=== PATIENT | female | born 1995 | race African-American/Black ===

== ENCOUNTER 2019-03-26 17:58 | Emergency (ER) | payer OTHER ==
[~2019-03-26] VITALS: Ht 162.6 cm; Wt 98.9 kg
[2019-03-26 18:26] LABS: BILIRUBIN,URINE NEGATIVE (NEG); CLARITY,URINE CLOUDY; COLOR,URINE YELLOW; NITRITE,URINE NEGATIVE (NEG); PH,URINE 6.5; PROTEIN,URINE NEGATIVE (NEG-TRACE)
[2019-03-26] MEDS ORDERED: IV NORMAL SALINE 1000ML BAG 1,000 ML IV ONE (18:30)
[2019-03-26] MEDS ORDERED: ACETAMINOPHEN 500 MG TABLET PO ONE (18:30)
[2019-03-26 18:50] LABS: BACTERIA,URINE FEW /HPF (0-FEW); RBC,URINE 0 /HPF (0-2); SQUAMOUS EPITHELIAL CELL,UR OCC /LPF; WBC,URINE RARE /HPF (0-4)
--- NOTE | 2019-03-26 18:52 | PHYS DOC ---
Past Medical History Past Medical History: No Pertinent History Past Surgical History: No Surgical History Alcohol Use: None Drug Use: None Adult General Chief Complaint Chief Complaint: ABDOMINAL PAIN IN HPI HPI Patient is a 23 year old at 19.4 weeks gestational age by 1st trimester ultrasound who presents with low back pain and diarrhea. Her first was a term spontaneous vaginal delivery without complications. She states that she has experienced diarrhea for about the past week and low back pain for the past 2 days. She is concerned because these symptoms are similar to when she went into labor during her first . Patient states that the low back pain is fairly constant and rated at 7/10. She is also complaining of vaginal pain. 2 months ago, she was treated for chlamydia and feels that her vaginal pain is similar to when she was first diagnosed with her previous STI. She also notes dysuria. Patient is still feeling good movement, has had no gush of fluid and has had no vaginal bleeding. She states that she has been drinking a good amount of water. She sees Dr. Les Masterson and has an appointment with him tomorrow at 1500. Denies new headaches, RUQ pain, increased swelling, blurred vision or diplopia. Review of Systems Review of Systems Constitutional: Denies fever or chills [] Eyes: Denies change in visual acuity, blurred vision or diplopia[] HENT: Denies nasal congestion or sore throat [] Respiratory: Denies cough or shortness of breath [] Cardiovascular: Eyes chest pain, palpitations, or dizziness[] GI: Reports diarrhea. Denies abdominal pain, nausea, vomiting. [] : Reports dysuria. Denies hematuria [] Musculoskeletal: Reports constant low back pain without radiation.[] Integument: Denies rash or skin lesions [] Neurologic: Denies headache, focal weakness or sensory changes [] Complete review of systems found to be within normal limits, except as documented in this note. Current Medications Current Medications Current Medications Medications (Trade) Dose Ordered Sig/Kylee Start Time Stop Time Status Last Admin Dose Admin Acetaminophen (Tylenol) 500 mg 1X ONCE 03/26/19 18:30 03/26/19 18:31 DC 03/26/19 19:06 500 MG Sodium Chloride 1,000 ml @ 1,000 mls/hr 1X ONCE 03/26/19 18:30 03/26/19 19:29 DC 03/26/19 19:05 1,000 MLS/HR Allergies Allergies Allergies Coded Allergies Type Severity Reaction Last Updated Verified No Known Drug Allergies 10/22/14 No Physical Exam Physical Exam Constitutional: female in no acute distress, non-toxic appearance. [] HENT: Normocephalic, atraumatic, oropharynx moist.. [] Eyes: EOMI, conjunctiva normal, no discharge. [] Cardiovascular:Heart rate regular rhythm, no murmur [] Lungs & Thorax: Bilateral breath sounds clear to auscultation [] Abdomen: Soft and nontender. Gravid uterus palpated at the umbilicus.[] Skin: Warm, dry, no erythema, no rash. [] Back: No tenderness to palpation. [] Extremities: Trace edema bilateral lower extremities. [] Neurologic: Alert and oriented, normal motor function, normal sensory function, no focal deficits noted. [] Psychologic: Affect normal, judgement normal, mood normal. Pelvic Exam: External genitalia normal. Vaginal mucosa without erythema. No pooling of fluid in the posterior vaginal vault. No bleeding noted. Cervix erythematous with yellow discharge and closed os. No cervical motion tenderness. Mild left adnexal tenderness. No adnexal masses noted. [] Current Patient Data Vital Signs Vital Signs Date Time Temp Pulse Resp B/P (MAP) Pulse Ox O2 Delivery O2 Flow Rate FiO2 03/26/19 18:00 98.4 105 14 143/69 (93) 100 Room Air 98.4 Lab Values Laboratory Tests Test 03/26/19 18:15 03/26/19 19:00 Urine Collection Type Void Urine Color Yellow Urine Clarity Cloudy Urine pH 6.5 Urine Specific [place] 1.025 Urine Protein Negative mg/dL (NEG-TRACE) Urine Glucose (UA) Negative mg/dL (NEG) Urine Ketones (Stick) Negative mg/dL (NEG) Urine Blood Negative (NEG) Urine Nitrite Negative (NEG) Urine Bilirubin Negative (NEG) Urine Urobilinogen Dipstick 1.0 mg/dL (0.2 mg/dL) Urine Leukocyte Esterase Negative (NEG) Urine RBC 0 /HPF (0-2) Urine WBC Rare /HPF (0-4) Urine Squamous Epithelial Cells Occ /LPF Urine Bacteria Few /HPF (0-FEW) Urine Mucus Slight /LPF White Blood Count 10.7 x10^3/uL (4.0-11.0) Red Blood Count 4.28 x10^6/uL (3.50-5.40) Hemoglobin 11.2 g/dL (12.0-15.5) L Hematocrit 34.6 % (36.0-47.0) L Mean Corpuscular Volume 81 fL (79-100) Mean Corpuscular Hemoglobin 26 pg (25-35) Mean Corpuscular Hemoglobin Concent 32 g/dL (31-37) Red Cell Distribution Width 14.5 % (11.5-14.5) Platelet Count 211 x10^3/uL (140-400) Neutrophils (%) (Auto) 72 % (31-73) Lymphocytes (%) (Auto) 19 % (24-48) L Monocytes (%) (Auto) 7 % (0-9) Eosinophils (%) (Auto) 2 % (0-3) Basophils (%) (Auto) 0 % (0-3) Neutrophils # (Auto) 7.7 x10^3uL (1.8-7.7) Lymphocytes # (Auto) 2.0 x10^3/uL (1.0-4.8) Monocytes # (Auto) 0.8 x10^3/uL (0.0-1.1) Eosinophils # (Auto) 0.2 x10^3/uL (0.0-0.7) Basophils # (Auto) 0.0 x10^3/uL (0.0-0.2) Maternal Serum HCG Beta Subunit 95189 mIU/mL (0-5) H Sodium Level 138 mmol/L (136-145) Potassium Level 3.7 mmol/L (3.5-5.1) Chloride Level 104 mmol/L (98-107) Carbon Dioxide Level 22 mmol/L (21-32) Anion Gap 12 (6-14) Blood Urea Nitrogen 7 mg/dL (7-20) Creatinine 0.6 mg/dL (0.6-1.0) Estimated GFR (Cockcroft-Gault) 151.3 BUN/Creatinine Ratio 12 (6-20) Glucose Level 81 mg/dL (70-99) Calcium Level 8.8 mg/dL (8.5-10.1) Magnesium Level 1.9 mg/dL (1.8-2.4) Total Bilirubin 0.3 mg/dL (0.2-1.0) Aspartate Amino Transferase (AST) 16 U/L (15-37) Alanine Aminotransferase (ALT) 16 U/L (14-59) Alkaline Phosphatase 63 U/L (46-116) Total Protein 7.2 g/dL (6.4-8.2) Albumin 3.1 g/dL (3.4-5.0) L Albumin/Globulin Ratio 0.8 (1.0-1.7) L Laboratory Tests 03/26/19 19:00 Laboratory Tests 03/26/19 19:00 Microbiology 03/26/19 Wet Prep - Final, Complete EKG EKG [] Radiology/Procedures Radiology/Procedures PROCEDURE: OB LIMITED Limited obstetrical ultrasound 03/26/2019. Reason for exam: Back pain and vaginal pain. FINDINGS: A living intrauterine fetus is demonstrated, with heart rate of 127 bpm. The placenta is seen anteriorly and does not reach the cervix. Amniotic fluid volume appears appropriate. Although a full anatomic survey was not undertaken, no gross anomaly was encountered. The following age estimates were obtained: BPD: 19 weeks 3 days. HC: 20 weeks 0 days. AC: 19 weeks 3 days. FL: 20 weeks 2 days. Composite ultrasound estimated is 19 weeks 6 days, giving DWIGHT of 08/14/2019. IMPRESSION: Living intrauterine fetus. No identified cause for pain. Electronically signed by: Christa Hoyt Jr., MD (03/26/2019 7:47 PM) [facility] DICTATED and SIGNED BY: CHRISTA HOYT Jr, MD DATE: 03/26/191946 Course & Med Decision Making Course & Med Decision Making Pertinent Labs and Imaging studies reviewed. (See chart for details) [] Dragon Disclaimer Dragon Disclaimer This electronic medical record was generated, in whole or in part, using a voice recognition dictation system. Departure Departure Impression: Primary Impression: Abdominal pain during Additional Impression: Back pain during Disposition: HOME, SELF-CARE Condition: STABLE Referrals: UNKNOWN PCP NAME (PCP) Patient Instructions: Abdominal Pain During , [id number] Additional Instructions: Use tylenol as needed for pain. ICE back 20 min on then off 20 min as needed for next few days. Problem Qualifiers Primary Impression: Abdominal pain during Trimester: unspecified trimester Qualified Codes: O26.899 - Other specified related conditions, unspecified trimester; R10.9 - Unspecified abdominal pain BRANDON ZAMBRANO DO March 26, 2019 18:52
[2019-03-26 19:07] LABS: BASO % 0 % (0-3); EOS # 0.2 x10^3/uL (0.0-0.7); EOS % 2 % (0-3); HEMATOCRIT 34.6 % (36.0-47.0); HEMOGLOBIN 11.2 g/dL (12.0-15.5); LYMPH % 19 % (24-48); MEAN CORPUSCULAR HEMOGLOBIN 26 pg (25-35); MEAN CORPUSCULAR HGB CONC 32 g/dL (31-37); MEAN CORPUSCULAR VOLUME 81 fL (79-100); MONO # 0.8 x10^3/uL (0.0-1.1); MONO % 7 % (0-9); NEUT # 7.7 x10^3uL (1.8-7.7); NEUT % 72 % (31-73); PLATELET COUNT 211 x10^3/uL (140-400); RED BLOOD COUNT 4.28 x10^6/uL (3.50-5.40); RED CELL DISTRIBUTION WIDTH 14.5 % (11.5-14.5); WHITE BLOOD COUNT 10.7 x10^3/uL (4.0-11.0)
[2019-03-26 19:16] LABS: CALCIUM 8.8 mg/dL (8.5-10.1); CREATININE 0.6 mg/dL (0.6-1.0); GFR 151.3; POTASSIUM 3.7 mmol/L (3.5-5.1)
[2019-03-26 19:20] LABS: ALBUMIN 3.1 g/dL (3.4-5.0); ALBUMIN/GLOBULIN RATIO 0.8 (1.0-1.7); MAGNESIUM 1.9 mg/dL (1.8-2.4); TOTAL BILIRUBIN 0.3 mg/dL (0.2-1.0); TOTAL PROTEIN 7.2 g/dL (6.4-8.2)
--- NOTE | 2019-03-26 19:49 | RAD ---
Limited obstetrical ultrasound 03/26/2019. Reason for exam: Back pain and vaginal pain. FINDINGS: A living intrauterine fetus is demonstrated, with heart rate of 127 bpm. The placenta is seen anteriorly and does not reach the cervix. Amniotic fluid volume appears appropriate. Although a full anatomic survey was not undertaken, no gross anomaly was encountered. The following age estimates were obtained: BPD: 19 weeks 3 days. HC: 20 weeks 0 days. AC: 19 weeks 3 days. FL: 20 weeks 2 days. Composite ultrasound estimated is 19 weeks 6 days, giving DWIGHT of 08/14/2019. IMPRESSION: Living intrauterine fetus. No identified cause for pain. Electronically signed by: Dennis Polo Jr., MD (03/26/2019 7:47 PM) [facility]
[2019-03-26 20:45] VITALS: BP 103/58
[2019-03-28 14:14] LABS: GC PROBE Negative (Negative)
== END 2019-03-26 21:11 | disposition home or self-care (01) ==
LOC: ER 17:58
DX: O26.892 Other specified pregnancy related conditions, second trimester (principal); M54.5 Low back pain; R10.33 Periumbilical pain; R10.11 Right upper quadrant pain; R19.7 Diarrhea, unspecified; R10.2 Pelvic and perineal pain; Z3A.19 19 weeks gestation of pregnancy
CPT/HCPCS: 36415; 76815; 80053; 81001; 83735; 84702; 85025; 86901; 87491; 87591; 96360; 99285; J7030; Q0111

== ENCOUNTER 2019-08-06 16:12 | Observation (INO) | payer MEDICAID ==
[~2019-08-06] VITALS: Ht 160 cm; Wt 104.3 kg
[2019-08-06] MEDS ORDERED: IV RINGERS,LACTATED 1000ML 1,000 ML IV SCH (17:20)
[2019-08-06 18:28] LABS: BILIRUBIN,URINE NEGATIVE (NEG); CLARITY,URINE CLEAR; COLOR,URINE YELLOW; NITRITE,URINE NEGATIVE (NEG); PROTEIN,URINE NEGATIVE (NEG-TRACE); UROBILINOGEN,URINE 0.2 mg/dL (0.2 mg/dL)
[2019-08-06 18:35] LABS: BACTERIA,URINE 0 /HPF (0-FEW); RBC,URINE 0 /HPF (0-2)
[2019-08-06 18:52] LABS: BASO % 0 % (0-3); EOS # 0.1 x10^3/uL (0.0-0.7); EOS % 1 % (0-3); HEMATOCRIT 34.9 % (36.0-47.0); HEMOGLOBIN 11.4 g/dL (12.0-15.5); LYMPH # 1.9 x10^3/uL (1.0-4.8); LYMPH % 19 % (24-48); MEAN CORPUSCULAR HEMOGLOBIN 25 pg (25-35); MEAN CORPUSCULAR HGB CONC 33 g/dL (31-37); MEAN CORPUSCULAR VOLUME 77 fL (79-100); MONO # 0.8 x10^3/uL (0.0-1.1); MONO % 8 % (0-9); NEUT # 7.2 x10^3/uL (1.8-7.7); NEUT % 72 % (31-73); PLATELET COUNT 206 x10^3/uL (140-400); RED BLOOD COUNT 4.53 x10^6/uL (3.50-5.40); RED CELL DISTRIBUTION WIDTH 16.7 % (11.5-14.5); WHITE BLOOD COUNT 10.1 x10^3/uL (4.0-11.0)
[2019-08-06 19:14] LABS: ALBUMIN 2.6 g/dL (3.4-5.0); ALBUMIN/GLOBULIN RATIO 0.5 (1.0-1.7); CALCIUM 8.6 mg/dL (8.5-10.1); CREATININE 0.7 mg/dL (0.6-1.0); GFR 126.6; POTASSIUM 4.3 mmol/L (3.5-5.1); TOTAL BILIRUBIN 0.4 mg/dL (0.2-1.0); TOTAL PROTEIN 7.4 g/dL (6.4-8.2)
== END 2019-08-06 21:40 | disposition home or self-care (01) ==
LOC: 3 SO LND 16:12
PROVIDERS: ADMIT Specialist; ATTEND Specialist
DX: O21.2 Late vomiting of pregnancy (principal); O26.893 Other specified pregnancy related conditions, third trimester; R42 Dizziness and giddiness; Z3A.38 38 weeks gestation of pregnancy
CPT/HCPCS: 36415; 80053; 81001; 84443; 85025; 87086; 96360; G0378; G0379; J7120

== ENCOUNTER 2019-08-09 06:15 | Inpatient (IN) | payer OTHER, MEDICAID ==
[~2019-08-09] VITALS: Ht 160 cm; Wt 105.2 kg
[2019-08-09] MEDS ORDERED: IV RINGERS,LACTATED 1000ML 1,000 ML IV SCH (06:18)
[2019-08-09] MEDS ORDERED: fentaNYL PF VIAL 100 MCG/2 ML VIAL IV PRN (06:30)
[2019-08-09] MEDS ORDERED: OXYTOCIN 30 UNIT/500 ML PREMIX 500 ML IV PRN ×3 (06:30→16:00)
[2019-08-09] MEDS ORDERED: 0.9 % SODIUM CHLORIDE 10 ML DISP.SYRIN. IV PRN ×2 (06:30→15:45)
[2019-08-09] MEDS ORDERED: ACETAMINOPHEN 325 MG TABLET. PO PRN (06:30)
[2019-08-09] MEDS ORDERED: IBUPROFEN 400 MG TABLET. PO PRN (06:30)
[2019-08-09] MEDS ORDERED: LIDOCAINE 1% PF 30 ML VIAL. INJ PRN (06:30)
[2019-08-09] MEDS ORDERED: NALBUPHINE 10 MG/ML AMPUL. IV PRN (06:30)
[2019-08-09] MEDS ORDERED: MAG HYDROX/ALUMINUM HYD/SIMETH 30 ML ORAL.SUSP PO PRN ×2 (06:30→15:45)
[2019-08-09] MEDS ORDERED: BUTORPHANOL 2 MG/ML VIAL. IV PRN (06:30)
[2019-08-09] MEDS ORDERED: ONDANSETRON PF 4 MG/2 ML VIAL. IV PRN (06:30)
[2019-08-09] MEDS ORDERED: TERBUTALINE 1 MG/ML VIAL. SQ PRN (06:30)
[2019-08-09 06:58] LABS: BILIRUBIN,URINE NEGATIVE (NEG); CLARITY,URINE CLEAR; COLOR,URINE YELLOW; NITRITE,URINE NEGATIVE (NEG); PROTEIN,URINE NEGATIVE (NEG-TRACE)
[2019-08-09 07:19] LABS: BACTERIA,URINE MODERATE /HPF (0-FEW); RBC,URINE 0 /HPF (0-2); SQUAMOUS EPITHELIAL CELL,UR MANY /LPF; WBC,URINE >40 /HPF (0-4)
[2019-08-09 07:26] LABS: BASO % 0 % (0-3); EOS # 0.1 x10^3/uL (0.0-0.7); EOS % 1 % (0-3); HEMATOCRIT 33.9 % (36.0-47.0); HEMOGLOBIN 10.9 g/dL (12.0-15.5); LYMPH # 1.3 x10^3/uL (1.0-4.8); LYMPH % 17 % (24-48); MEAN CORPUSCULAR HEMOGLOBIN 25 pg (25-35); MEAN CORPUSCULAR HGB CONC 32 g/dL (31-37); MEAN CORPUSCULAR VOLUME 78 fL (79-100); MONO # 0.6 x10^3/uL (0.0-1.1); MONO % 8 % (0-9); NEUT % 75 % (31-73); PLATELET COUNT 209 x10^3/uL (140-400); RED BLOOD COUNT 4.37 x10^6/uL (3.50-5.40); RED CELL DISTRIBUTION WIDTH 16.7 % (11.5-14.5)
[2019-08-09] MEDS ORDERED: OXYTOCIN PREMIX 30 UNIT/500 ML NS BAG. IV ONE (07:30)
[2019-08-09 07:38] VITALS: BP 109/50
[2019-08-09] MEDS ORDERED: BUPIVACAINE MPF 0.25% 30 ML VIAL. ONE (14:58)
[2019-08-09] MEDS ORDERED: L&D EPIDURAL SYRINGE 50 ML ONE (14:58)
[2019-08-09] MEDS ORDERED: MMR per PROTOCOL. MC PRN (15:31)
--- NOTE | 2019-08-09 15:37 | PDOC1 ---
OB - History Hx of Present Care: None Ultrasounds: Normal mid trimester US Obstetrical Complications: None Medical Complications: None Past Family/Social History * Past Medical, Surgical, Family and Obstetric Histories reviewed from chart. Blood Type: B+ RPR/VDRL: Negative GBS Status: Negative HBsAG: Negative OB - Chief Complaint & HPI Date of Admission: Date of Admission: Aug 09, 2019 at 06:15 Chief Complaint/History : 2 Para: 1 EDC: Aug 16, 2019 Reason for admission: induction of labor Admission Nurse Assessment Rev: Yes OB - Admission Exam Physical Exam Vitals: VS - Last 72 Hours, by Label Date Time Temp Pulse Resp B/P (MAP) Pulse Ox O2 Delivery O2 Flow Rate FiO2 08/09/19 13:49 18 Room Air HEENT: Normal, Nasal Mucosa Normal, Oropharynx Normal, Moist Membranes, Fontanelles Normal Heart: Regular Rate Lungs: Clear, Equal Abdomen: Gravid Extremities: Normal Pulses, No tenderness or swelling Reflexes: Normal Cervical Dilatation: 2cm Effacement: 25% Station: Ballotable Membranes: Intact Amniotic Fluid: Clear Accelerations: Accelerations Present Short Term Variability: Present Contractions on Admission: >10 Minutes Apart Assessment/Plan Assessment/Plan TIUP induction ACSVD SIA MAC MD Aug 09, 2019 15:37
--- NOTE | 2019-08-09 15:39 | PDOC ---
VAGINAL DELIVERY DATE DATE: 08/09/19 TIME: 15:37 : 2 Para: 1 EDC: Aug 16, 2019 VAGINAL DELIVERY: VTX VACCUM ASSISTED: No PLACENTA: Spontaneous SEX: Female WEIGHT Weight [ ] Nuchal Cord: No, Yes, Times 1, Loose Amniotic Fluid: Clear PAIN: Epidural EPISIOTOMY: No EXTENSION: No EBL 300cc COMPLICATIONS none CONDITION Stable Signs of Intrauterine Infectio: None Shoulder Dystocia: No DIAGNOSIS SIA Pennington MD Aug 09, 2019 15:39
[2019-08-09] MEDS ORDERED: diphenhydrAMINE HCL 25 MG CAPSULE PO PRN (15:45)
[2019-08-09] MEDS ORDERED: SIMETHICONE 80 MG TAB.CHEW PO PRN (15:45)
[2019-08-09] MEDS ORDERED: PHENYLEPH/MINERAL OIL/PETROLAT RECTAL OINTMENT TUBE. RC PRN (15:45)
[2019-08-09] MEDS ORDERED: BENZOCAINE 20% TOPICAL AEROSOL SPRAY 57GM CAN. TP PRN (15:45)
[2019-08-09] MEDS ORDERED: ZOLPIDEM 5 MG TABLET. PO PRN (15:45)
[2019-08-09] MEDS ORDERED: HYDROCORTISONE 1% TOPICAL OINTMENT 30GM TUBE. TP PRN (15:45)
[2019-08-09] MEDS ORDERED: MAGNESIUM HYDROXIDE 2,400 MG/30 ML ORAL.SUSP. PO PRN (15:45)
[2019-08-09] MEDS: IBUPROFEN 400 MG TABLET. PO PRN (16:30)
[2019-08-09] MEDS ORDERED: FERROUS SULFATE 325 MG TABLET. PO SCH (17:00)
[2019-08-09] MEDS: ACETAMINOPHEN 325 MG TABLET. PO PRN (19:56)
[2019-08-09 20:00] VITALS: BP 113/42
[2019-08-09 22:18] VITALS: BP 125/77
[2019-08-09] MEDS: IBUPROFEN 400 MG TABLET. PO SCH (23:09)
[2019-08-10 02:30] VITALS: BP 111/60
[2019-08-10] MEDS: ACETAMINOPHEN 325 MG TABLET. PO PRN ×3 (03:53→22:58)
[2019-08-10 06:13] VITALS: BP 96/46
[2019-08-10] MEDS: IBUPROFEN 400 MG TABLET. PO SCH (08:26)
[2019-08-10] MEDS ORDERED: FLU VAX QS 2019-20 (36MOS+)/PF 0.5 ML SYRINGE. VAX IM ONE (10:00)
[2019-08-10 11:10] VITALS: BP 91/73
[2019-08-10 14:10] VITALS: BP 117/60
[2019-08-10] MEDS: IBUPROFEN 400 MG TABLET. PO PRN (17:09)
[2019-08-10 21:00] VITALS: BP 124/69
[2019-08-10] MEDS ORDERED: guaiFENesin DM 600/30MG 1 TAB TAB.ER.12H PO PRN (21:15)
[2019-08-10] MEDS: BENZOCAINE/MENTHOL LOZENGE. PO PRN (22:11)
[2019-08-11] MEDS: IBUPROFEN 400 MG TABLET. PO PRN ×2 (02:37→12:01)
[2019-08-11] MEDS: BENZOCAINE/MENTHOL LOZENGE. PO PRN ×4 (02:38→12:00)
[2019-08-11] MEDS: ACETAMINOPHEN 325 MG TABLET. PO PRN (05:29)
[2019-08-11 05:30] VITALS: BP 122/64
[2019-08-11] MEDS ORDERED: DIPHTH,PERTUSS(ACELL),TET TOX 0.5 ML DISP.SYRIN. VAX IM ONE (09:00)
[2019-08-11 12:06] VITALS: BP 113/57
--- NOTE | 2019-08-11 12:19 | PDOC ---
Provider Note Provider Note Late entry 08/10/19 Doing well VSS Uterus NTTP FU in AM SIA MAC MD Aug 11, 2019 12:19
--- NOTE | 2019-08-11 12:20 | PDOC3 ---
OB DISCHARGE SUMMARY DATE OF ADMISSION: 08/09/19 DATE OF DISCHARGE: 08/11/19 REASON FOR ADMISSION: Induction of labor PROCEDURES: Ultrasound INTRAPARTUM PROCEDURES: Spontanous Vag Deliv PROCEDURES: None OPERATIONS: None DISCHARGE INFORMATION: Activity, Diet HOSPITAL COURSE Unremarkable CONDITION AT DISCHARGE Stable SIA MAC MD Aug 11, 2019 12:20
[2019-08-11] MEDS ORDERED: HYDR-3164 PO (12:21)
[2019-08-11] MEDS ORDERED: NAPR-514 PO (12:21)
== END 2019-08-11 14:15 | disposition home or self-care (01) | DRG 807 ==
LOC: 3 SO LND 06:15 → 3 NORTH 19:59
PROVIDERS: ADMIT Specialist; ATTEND Specialist
PROC: 10E0XZZ Delivery of Products of Conception, External Approach (ICD-10-PCS; principal; 2019-08-09)
PROC: 3E0R3BZ Introduction of Anesthetic Agent into Spinal Canal, Percutaneous Approach (ICD-10-PCS; 2019-08-09)
PROC: 00HU33Z Insertion of Infusion Device into Spinal Canal, Percutaneous Approach (ICD-10-PCS; 2019-08-09)
DX: O69.81X0 Labor and delivery complicated by cord around neck, without compression, not applicable or unspecified (principal); Z37.0 Single live birth; Z3A.39 39 weeks gestation of pregnancy
CPT/HCPCS: 36415; 81001; 85014; 85025; 86592; 86850; 86900; 86901; 87086; 90471; 90686; 90715; J2590; J3010; J7120; G0378

== ENCOUNTER 2019-10-26 05:02 | Emergency (ER) | payer OTHER, MEDICAID ==
[~2019-10-26] VITALS: Ht 160 cm; Wt 98.9 kg
[~2019-10-26 05:02] MED LIST: HYDR-3164 PO; NAPR-514 PO
--- NOTE | 2019-10-26 05:54 | PHYS DOC ---
Past Medical History Past Medical History: No Pertinent History Past Surgical History: No Surgical History Alcohol Use: None Drug Use: None Adult General Chief Complaint Chief Complaint: ABDOMINAL PAIN HPI HPI Patient is a 23-year-old female who presents with complaint of periumbilical abdominal pain that started last night about 9 PM. Patient rates pain at a 7 out of 10. She states the pain is worsened with movement. She states that since onset of pain she has not had any appetite. She does report to nausea but is had no vomiting. She states that nothing is improving her symptoms. She denies any fever. She denies any diarrhea.[] Review of Systems Review of Systems Constitutional: Denies fever or chills [] Respiratory: Denies cough or shortness of breath [] Cardiovascular: No additional information not addressed in HPI [] GI: Complains of periumbilical abdominal pain with nausea. Denies vomiting and diarrhea [] : Denies dysuria or hematuria [] Integument: Denies rash or skin lesions [] Neurologic: Denies headache, focal weakness or sensory changes [] All other systems were reviewed and found to be within normal limits, except as documented in this note. Allergies Allergies Allergies Coded Allergies Type Severity Reaction Last Updated Verified No Known Drug Allergies 10/22/14 No Physical Exam Physical Exam Constitutional: Well developed, well nourished, no acute distress, non-toxic appearance. [] HENT: Normocephalic, atraumatic, bilateral external ears normal, oropharynx moist, no oral exudates, nose normal. [] Eyes: PERRLA, EOMI, conjunctiva normal, no discharge. [] Neck: Normal range of motion, no tenderness, supple. [] Cardiovascular: Regular rate and rhythm[] Lungs & Thorax: Bilateral breath sounds clear to auscultation [] Abdomen: Bowel sounds normal, soft, with periumbilical tenderness. No rebound or McBurney's point tenderness. [] Skin: Warm, dry, no erythema, no rash. [] Extremities: No tenderness, no cyanosis, no clubbing, ROM intact, no edema. [] Neurologic: Alert and oriented X 3, no focal deficits noted. [] EKG EKG [] Radiology/Procedures Radiology/Procedures [] Course & Med Decision Making Course & Med Decision Making Pertinent Labs and Imaging studies reviewed. (See chart for details) Patient moved to room upon arrival was evaluated by ER medical staff after which an IV was established and blood work was drawn. At this time, patient's workup is pending and patient is being signed out to oncoming ER physician, Dr. Basilio, at 6:00 AM. Dragon Disclaimer Dragon Disclaimer This electronic medical record was generated, in whole or in part, using a voice recognition dictation system. Departure Departure Referrals: NO PCP (PCP) CARMELA CUADRA Jr. DO Oct 26, 2019 05:54
[2019-10-26] MEDS ORDERED: IV NORMAL SALINE 1000ML BAG 1,000 ML IV SCH (06:00)
[2019-10-26] MEDS ORDERED: ONDANSETRON PF 4 MG/2 ML VIAL. IV ONE (06:15)
[2019-10-26] MEDS ORDERED: KETOROLAC 30 MG/ML VIAL. IV ONE (06:15)
[2019-10-26 06:21] LABS: BILIRUBIN,URINE NEGATIVE (NEG); CLARITY,URINE CLEAR; COLOR,URINE YELLOW; NITRITE,URINE NEGATIVE (NEG); PROTEIN,URINE NEGATIVE (NEG-TRACE)
[2019-10-26 06:30] VITALS: BP 127/82
[2019-10-26 06:32] LABS: BACTERIA,URINE FEW /HPF (0-FEW); RBC,URINE 0 /HPF (0-2)
[2019-10-26 06:33] LABS: SQUAMOUS EPITHELIAL CELL,UR MOD /LPF
[2019-10-26 06:40] LABS: BASO % 0 % (0-3); EOS # 0.2 x10^3/uL (0.0-0.7); EOS % 2 % (0-3); HEMATOCRIT 38.1 % (36.0-47.0); LYMPH # 1.6 x10^3/uL (1.0-4.8); LYMPH % 17 % (24-48); MEAN CORPUSCULAR HEMOGLOBIN 25 pg (25-35); MEAN CORPUSCULAR HGB CONC 31 g/dL (31-37); MEAN CORPUSCULAR VOLUME 80 fL (79-100); MONO # 0.9 x10^3/uL (0.0-1.1); MONO % 10 % (0-9); NEUT # 6.5 x10^3/uL (1.8-7.7); NEUT % 71 % (31-73); PLATELET COUNT 230 x10^3/uL (140-400); RED BLOOD COUNT 4.79 x10^6/uL (3.50-5.40); RED CELL DISTRIBUTION WIDTH 16.6 % (11.5-14.5); WHITE BLOOD COUNT 9.1 x10^3/uL (4.0-11.0)
[2019-10-26 06:49] LABS: CALCIUM 8.6 mg/dL (8.5-10.1); CREATININE 0.8 mg/dL (0.6-1.0); GFR 108.5; POTASSIUM 3.5 mmol/L (3.5-5.1)
[2019-10-26 06:54] LABS: ALBUMIN 3.7 g/dL (3.4-5.0); ALBUMIN/GLOBULIN RATIO 0.8 (1.0-1.7); TOTAL BILIRUBIN 0.4 mg/dL (0.2-1.0); TOTAL PROTEIN 8.1 g/dL (6.4-8.2)
[2019-10-26] MEDS ORDERED: ONDA4TAB7 PO (07:32)
[2019-10-26 07:48] LABS: U PREG PATIENT NEGATIVE (NEG)
== END 2019-10-26 07:36 | disposition home or self-care (01) ==
LOC: ER 05:02
DX: R10.33 Periumbilical pain (principal); R11.0 Nausea
CPT/HCPCS: 36415; 80053; 81001; 81025; 83690; 85025; 87086; 96374; 96375; 99284; J1885; J2405; J7030